=== PATIENT | male | born 1980 | race Caucasian/White ===

== ENCOUNTER 2016-08-20 12:51 | Emergency (ER) | payer OTHER ==
[2016-08-20 13:20] VITALS: BP 144/76; PULSE 70; RESP 18; TEMP 99; O2SAT 96
[2016-08-20] MEDS ORDERED: LIDOCAINE 2% JELLY 5 ML TUBE ONE (13:37)
--- NOTE | 2016-08-20 13:56 | UCPHY ---
H & P Time Seen by Provider: 08/20/16 13:31 Patient Type: Established HPI/ROS: This patient presents with a chief complaint of a injury to his right hand which occurred last night. He localizes the pain to the extensor surface of the 3rd MP joint and is also noticed a popping sound when he flexes his 3rd digit. He denies any motor or sensory dysfunction. The the finger snap to when he had it flexed and then released it rapidly. Smoking Status: Never smoked Physical Exam: This is a well-developed well-nourished male who is in no acute distress. He is alert and lucid. His mental status is normal. Examination of the right hand reveals mild swelling over the extensor surface of the hand overlying the 3rd MP joint. There is some tenderness in this area but it is minimal and there is no obvious dislocation. When the patient flexed is digit the extensor tendon dislocated to the ulnar side with a distinct popping sensation. When he extend the digit the tender return to its normal position. Constitutional: Initial Vital Signs Temperature (C) 37.2 C 08/20/16 13:14 Heart Rate 70 08/20/16 13:14 Respiratory Rate 18 08/20/16 13:14 Blood Pressure 144/76 H 08/20/16 13:14 O2 Sat (%) 96 08/20/16 13:14 O2 Delivery Mode Room Air Allergies/Adverse Reactions: No Known Allergies Allergy (Verified 08/20/16 13:14) Home Medications: Medication Instructions Recorded NK [No Known Home Meds] 08/20/16 Medical Decision Making - Diagnostics Imaging: X-rays of the 3rd digit and hand are normal. ED Course/Re-evaluation: A splint was not applied. Differential Diagnosis: This patient appears to be dislocating the extensor tendon to his 3rd digit. He is referred to hands for specialty consultation. Departure - Departure Disposition: Home, Routine, Self-Care Clinical Impression: Nontraumatic extensor tendon dislocation of right hand Hand injury Qualifiers: Encounter type: initial encounter Laterality: right Qualified Code(s): S69.91XA - Unspecified injury of right wrist, hand and finger(s), initial encounter Condition: Good Additional Instructions: You should follow-up with hand surgeon whose name is given to you in these pages. In the meantime follow this instructions below. Apply ice to the area of injury for 20 minutes every 2 hours for 3 days following your injury. After 3 days (72 hours) it is safe to apply heat frequently throughout the day and I would recommend you're doing so. However if ice feels better it is okay to do this. Elevate the area of the injury as much as possible for the next 2 or 3 days or longer if you have a serious injury. If you have been told that it is safe to use the injured extremity do so in a limited fashion for the first 2-3 days. Afterwards left pain be your guide. Adult Pain & Fever Control: We recommend Acetaminophen (Tylenol) and Ibuprofen (Motrin, Advil) for pain and fever control. When fever is high or pain severe, both drugs can be used at the same time, but at different intervals. Please note the time differences. Your dose is: Acetaminophen [650]mg every 4 to 6 hours ibuprofen [600]mg every [6] hours with food OR naproxen Sodium (Aleve) [440]mg every 12 hours. Note: do not take Acetaminophen with Hydrocodone (Vicodin, Lortab) or Oxycodone (Percocet). These medications also contain Acetaminophen. No more than 3000 mg of Acetaminophen should be taken in 24 hours (for an adult) . The maximal dose of ibuprofen that it is safe in a 24-hour period is 2400 mg. You may take 400 mg every 4 hours, 600 mg every 6 hours or 800 mg every 8 hours safely. Referrals: Cisco Culver MD [Medical Doctor] - As per Instructions - PQRS PQRS Measurement: Not applicable
== END 2016-08-20 14:06 | disposition home or self-care (01) ==
LOC: CED 12:51
DX: S69.91XA Unspecified injury of right wrist, hand and finger(s), initial encounter (principal); X50.9XXA Other and unspecified overexertion or strenuous movements or postures, initial encounter
CPT/HCPCS: 73140-PO; 99214-PO; G0463-PO

== ENCOUNTER → 2016-12-18 | Outpatient (CLI) | payer OTHER | LOC: BMCIMAGING 11:36 | PROVIDERS: ATTEND Emergency Medicine | DX: M25.561 Pain in right knee (principal); M25.532 Pain in left wrist; Y93.55 Activity, bike riding ==